=== PATIENT | female | born 1980 | race Caucasian/White ===

== ENCOUNTER 2021-12-03 16:19 | Emergency (ER) | payer MEDICAID ==
[~2021-12-03] VITALS: Ht 162.6 cm; Wt 152.0 kg
[~2021-12-03 16:19] MED LIST: CEPH500T PO; IBUP-2029 PO; SULF1TAB48 PO
[2021-12-03 16:50] VITALS: BP 138/56
== END 2021-12-03 23:15 | disposition left against medical advice (07) ==
LOC: ER 16:19
DX: Z53.21 Procedure and treatment not carried out due to patient leaving prior to being seen by health care provider (principal)